=== PATIENT | male | born 1985 | race Two or more races ===

== ENCOUNTER 2023-06-20 21:27 | Emergency (ER) | payer OTHER ==
[~2023-06-20] VITALS: Ht 175.3 cm; Wt 81.8 kg
[2023-06-20] MEDS ORDERED: CEPH500C PO (23:55)
[2023-06-20] MEDS ORDERED: NAP500T PO (23:55)
[2023-06-21 00:10] VITALS: BP 128/93; PULSE 104; RESP 18; TEMP 98.4; O2SAT 98
[2023-06-21] MEDS: HYDROcodone-ACET 5/325MG TAB PO ONE (00:14)
[2023-06-21] MEDS: cefTRIAXone SOD 1,000 MG VL IM ONE (00:14)
== END 2023-06-21 00:45 | disposition home or self-care (01) ==
LOC: ER 21:27
DX: L03.115 Cellulitis of right lower limb (principal); F17.210 Nicotine dependence, cigarettes, uncomplicated; F12.10 Cannabis abuse, uncomplicated; Z88.6 Allergy status to analgesic agent
CPT/HCPCS: 96372; 99283; J0696